=== PATIENT | female | born 1960 | race Caucasian/White ===

== ENCOUNTER → 2024-12-03 | Day surgery (SDC) | payer BC ==
[~2024-12-03] MED LIST: Ketamine 200 MG/20 ML MDV ONE; Midazolam 1 MG/ML 2 ML SDV ONE; Propofol 200 MG/20 ML SDV ONE; fentaNYL 50 MCG/ML SDV ONE
[2024-12-03] MEDS: Lactated Ringers 1,000 ML IV SCH (07:43)
[2024-12-03 09:57] VITALS: BP 124/55; PULSE 74
== END ==
LOC: CC.SDS 07:22
PROVIDERS: ATTEND Family Medicine
DX: K52.9 Noninfective gastroenteritis and colitis, unspecified (principal); F41.9 Anxiety disorder, unspecified; F32.A Depression, unspecified; M81.0 Age-related osteoporosis without current pathological fracture; J32.9 Chronic sinusitis, unspecified; E78.00 Pure hypercholesterolemia, unspecified; Z79.899 Other long term (current) drug therapy; Z88.2 Allergy status to sulfonamides
CPT/HCPCS: 00811; 45380; J2250; J2704; J3010; J3490; J7120

== ENCOUNTER 2025-04-24 19:15 | Emergency (ER) | payer BC ==
[2025-04-24 19:29] VITALS: BP 124/107; PULSE 68
[2025-04-24] MEDS: diphenhydrAMINE 50 MG/ML SDV IVPUSH ONE (20:05)
[2025-04-24] MEDS: methylPREDNISolone Sodium Succinate 125 MG/2 ML SDV IVPUSH STA (20:22)
== END 2025-04-24 20:45 | disposition home or self-care (01) ==
LOC: CC.ED 19:15
DX: L25.9 Unspecified contact dermatitis, unspecified cause (principal); Z88.2 Allergy status to sulfonamides; Z88.8 Allergy status to other drugs, medicaments and biological substances; Z79.899 Other long term (current) drug therapy
CPT/HCPCS: 96374; 96375; 99283; A9270; J1200; J2919